=== PATIENT | male | born 1990 | race Caucasian/White ===

== ENCOUNTER 2024-05-08 20:24 | Emergency (ER) | payer OTHER | END 2024-05-08 22:22 | disposition home or self-care (01) | LOC: CSHERS 20:24 | DX: S62.660A Nondisplaced fracture of distal phalanx of right index finger, initial encounter for closed fracture (principal); F17.290 Nicotine dependence, other tobacco product, uncomplicated; X58.XXXA Exposure to other specified factors, initial encounter | CPT/HCPCS: 99283 ==

== ENCOUNTER 2025-04-21 12:01 | Emergency (ER) | payer OTHER ==
[2025-04-21] MEDS ORDERED: Ketorolac Tromethamine 30 MG (1 mL) VIAL ONE (13:05)
[2025-04-21 13:27] LABS: #Basophils 0.04 10x3/uL (0.0-0.2); #Eosinophils 0.06 10x3/uL (0.0-0.5); #Monocytes 0.51 10x3/uL (0.0-1.1); #Neutrophils 3.26 10x3/uL (1.5-8.4); %Basophils 0.7 % (0.0-2.0); %Eosinophils 1.0 % (0.0-6.0); %Lymphocytes 35.4 % (18.0-47.0); %Monocytes 8.5 % (0.0-10.0); %Neutrophils 54.2 % (40.0-75.0); Hematocrit 47.1 % (38.8-50.0); Hemoglobin 16.1 g/dL (13.5-17.5); Mean Corpuscular Hemoglobin 29.8 pg (27.0-33.0); Mean Corpuscular Volume 87.1 fL (81.2-95.1); Platelet Count 189 10x3/uL (150-450); Red Blood Cell (RBC) Count 5.41 10x6/uL (4.32-5.72); White Blood Cell (WBC) Count 6.01 10x3/uL (3.5-10.5)
[2025-04-21 13:45] LABS: ALT (SGPT) 37 U/L (Less than 45); AST (SGOT) 23 U/L (11-34); Albumin 4.9 g/dL (3.1-4.5); Alkaline Phosphatase 65 U/L (40-110); Anion Gap 11 mmol/L (10-20); BUN (Urea Nitrogen) 12 mg/dL (8.9-20.6); Bilirubin, Total 0.4 mg/dL (0.3-1.2); Calc. Creatinine Clearance 0 mL/min (70-130); Calcium 9.7 mg/dL (7.8-10.44); Carbon Dioxide 29 mmol/L (22-29); Chloride 104 mmol/L (98-107); Globulin 2.4 g/dL (2.4-3.5); Glucose 99 mg/dL (70-105); Potassium 4.2 mmol/L (3.5-5.1); Sodium 140 mmol/L (136-145)
[2025-04-21 13:51] LABS: Troponin I Less than 0.010 ng/mL (< 0.028)
== END 2025-04-21 14:49 | disposition home or self-care (01) ==
LOC: CSHERS 12:01
DX: R07.89 Other chest pain (principal); R00.2 Palpitations; F17.290 Nicotine dependence, other tobacco product, uncomplicated
CPT/HCPCS: 36415; 71045; 80053; 84484; 85025; 85379; 93005; 94760; 96374; J1885